=== PATIENT | female | born 1995 ===

== ENCOUNTER 2019-01-18 10:09 | Emergency (ER) | payer OTHER, MEDICAID, SELFPAY ==
[2019-01-18 10:18] VITALS: BMI 30.2
--- NOTE | 2019-01-18 10:21 | PC.NURSE ---
pt here for preg test and seeking to know how far along she is. pt took preg test last night at home that was positive.
--- NOTE | 2019-01-18 10:23 | DI.US.S_ITS ---
PROCEDURE: US OB <= 14 WEEKS FETUS INDICATIONS: DATES OUTSIDE/PRIOR DATING DATA: Last menstrual period (LMP): 11/03/18. LMP-based estimated date of delivery (THERESA): 08/10/19. First dating scan (date and location): 01/19/19. Estimated date of delivery (THERESA) from first dating scan: 08/08/19. TECHNIQUE: Real-time scanning was performed of the fetus and maternal pelvic organs, with image documentation. Endovaginal scanning was also performed to better visualize the fetus and maternal ovaries. COMPARISON: None. FINDINGS: Embryo: A single live intrauterine is identified with heart motion detected at 173 beats per minute. A developing embryo is well visualized with a crown-rump length measuring 4.3 cm, which correlates with an estimated gestational age of the left weeks 1 day. No subchorionic hemorrhage is appreciated. The sac is not definitely seen. Measurement variability in dating: +/- 4 weeks by LMP, +/- 7 days by mean sac diameter (use before 6 weeks gestation if crown-rump length not able to be measured), +/- 5 days by crown-rump length (up to 8 weeks 6 days gestation), +/- 7 days by crown-rump length (up to 13 weeks 6 days gestation). Maternal organs: Ovaries are not seen. Limited images through the kidneys demonstrate no hydronephrosis. IMPRESSION: 1. Single intrauterine at 11 weeks 1 day (sonographic THERESA 08/08/19) is concordant with provided LMP date. 2. No evidence of subchorionic hemorrhage. Dictated by: Jesse Marques M.D. on 01/18/2019 at 10:17 Approved by: Jesse Maqrues M.D. on 01/18/2019 at 10:42
[2019-01-18 11:45] VITALS: BP 111/61; PULSE 84; RESP 16; TEMP 36.8; O2SAT 100
--- NOTE | 2019-01-18 12:16 | ED.PREGNANCY ---
HPI - <GRACE Trejo - Last Filed: 01/18/19 21:55> General Chief complaint: OB/Uterine Contractions Stated complaint: TEST Time Seen by Provider: 01/18/19 12:14 Source: patient Mode of arrival: ambulatory Limitations: no limitations History of Present Illness HPI Narrative: 23-year-old healthy female that is a nonsmoker here for concern about being . She states that her last menstrual. Was on the 03 of November. She has had a home test that was positive. She states that she has had some back pain and feels like she is urinating more often. She denies any dysuria. No vaginal bleeding. No vaginal discharge. No abdominal cramping. She has not established OB care as of yet. Current makes her 2 para 1. She denies any other concerns or complaints at this timeframe. Date of Last Menstrual Period: 11/03/18 Patient : Yes Expected Date of Delivery: 08/10/19 Related Data Previous Rx's Medication Instructions Recorded prenat.vits,ashia,dup-qkre-vajxm 1 tab PO DAILY #30 tab 01/18/19 Allergies Allergy/AdvReac Type Severity Reaction Status Date / Time No Known Drug Allergies Allergy Verified 01/18/19 10:18 Review of Systems <GRACE Trejo - Last Filed: 01/18/19 21:55> Review of Systems Concerned about being positive home test. Constitutional Denies chills, Denies fever(s), Denies lethargy and Denies weakness Eyes Denies change in vision, Denies eye discharge, Denies irritation and Denies loss of vision ENT Ears, Nose, Mouth, and Throat: Denies change in voice, Denies neck pain and Denies sore throat Cardiovascular Denies chest pain, Denies irregular heart rhythm, Denies lightheadedness, Denies palpitations, Denies dyspnea, Denies dyspnea on exertion and Denies orthopnea Respiratory Denies cough, Denies dyspnea, Denies dyspnea on exertion and Denies wheezing Gastrointestinal Gastrointestinal: Denies abdominal pain, Denies change in bowel habits, Denies diarrhea, Denies nausea and Denies vomiting Genitourinary Denies hematuria, Denies flank pain, Denies urinary incontinence and Denies urinary urgency Musculoskeletal Denies neck pain Integumentary/Breasts Denies pruritus, Denies erythema, Denies rash and Denies wounds Neurologic Denies confusion, Denies loss of vision and Denies weakness Psychiatric Denies anxiety, Denies confusion, Denies depression, Denies homicidal ideation and Denies suicidal ideation Endocrine Denies palpitations Hematologic/Lymphatic Denies easy bruising Allergic/Immunologic Denies wheezing PMFSH - <Tavo JarrellGRACE samson - Last Filed: 01/18/19 21:55> Past Medical History Medical history: Reports no medical history Surgical history: Reports no surgical history Date of Last Menstrual Period: 11/03/18 Patient : Yes Expected Date of Delivery: 08/10/19 Exam <Tavo JarrellGRACE samson - Last Filed: 01/18/19 21:55> Initial Vital Signs Initial Vital Signs: Vital Signs Temperature 98.2 F 01/18/19 11:45 Pulse Rate 84 01/18/19 11:45 Respiratory Rate 16 01/18/19 11:45 Blood Pressure 111/61 01/18/19 11:45 Pulse Oximetry 100 01/18/19 11:45 Const General: cooperative and well developed Nutritional Appearance: well nourished Orientation: alert, awake, oriented x3 and not confused HENMT Mouth: oral mucosae normal and moist mucous membranes Eyes Conjunctivae: conjunctivae normal Sclera: sclerae normal Pupils: PERRL EOM: EOM intact bilaterally Resp Effort & Inspection: normal respiratory effort, able to speak in complete sentences, no respiratory distress and no use of accessory muscles Auscultation: clear to auscultation bilaterally, no rales, no rhonchi and no wheezes Cardio Rate: regular rate Rhythm: regular rhythm Heart Sounds: no click, no gallops, no murmurs and no rubs GI Inspection: non-distended Palpation: soft, no hepatosplenomegaly, No guarding, No pulsatile mass and No tender Auscultation: normal bowel sounds General: No CVA tenderness Skin General: no rashes or lesions noted, No jaundice and No petechiae Neuro General: alert, oriented x3, gait normal and no focal motor deficits Speech: speech normal <Eve Pemberton DO - Last Filed: 01/19/19 15:59> Initial Vital Signs Initial Vital Signs: Vital Signs Temperature 98.2 F 01/18/19 11:45 Pulse Rate 84 01/18/19 11:45 Respiratory Rate 16 01/18/19 11:45 Blood Pressure 111/61 01/18/19 11:45 Pulse Oximetry 100 01/18/19 11:45 Course <GRACE Trejo - Last Filed: 01/18/19 21:55> Orders Ordered: ED Orders 01/18/19 10:23 US OB <= 14 weeks fetus Stat Vital Signs - 8 hr 01/18/19 11:45 Temperature 98.2 F Pulse Rate 84 Respiratory Rate 16 Blood Pressure [Left Arm] 111/61 Pulse Oximetry 100 <Eve Pemberton DO - Last Filed: 01/19/19 15:59> Orders Ordered: ED Orders 01/18/19 10:23 US OB <= 14 weeks fetus Stat Vital Signs - 8 hr 01/18/19 11:45 Temperature 98.2 F Pulse Rate 84 Respiratory Rate 16 Blood Pressure [Left Arm] 111/61 Pulse Oximetry 100 MDM - OB/Uterine Contractions <GRACE Trejo - Last Filed: 01/18/19 21:55> Lab Data Point of Care Testing Test Results Positive Urine Dip Bedside Urine Glucose Negative Bedside Urine Bilirubin - Negative Bedside Urine Ketone - Negative Urine Specific [place] 1.020 Bedside Urine Occult Blood - Negative Bedside Urine pH 6.5 Bedside Urine Protein - Negative Bedside Urine Urobilinogen - Negative Bedside Urine Nitrite - Negative Bedside Urine Leukocytes - Negative Esterase Imaging Data Ob ultrasound: Radiologist's impression: [place] [address] Ultrasound Report Signed Patient: Wilma Bethea [facility]#: [id number] : 1995Acct:[id number] Age/Sex: 23 / FDate of Service: 01/18/19 Loc: ED Accession Number: [id number] Procedure: US OB <= 14 weeks fetus Ordering Provider: Eve Pemberton D.O. PROCEDURE: US OB <= 14 WEEKS FETUS INDICATIONS: DATES OUTSIDE/PRIOR DATING DATA: Last menstrual period (LMP): 11/03/18. LMP-based estimated date of delivery (THERESA): 08/10/19. First dating scan (date and location): 01/19/19. Estimated date of delivery (THERESA) from first dating scan: 08/08/19. TECHNIQUE: Real-time scanning was performed of the fetus and maternal pelvic organs, with image documentation. Endovaginal scanning was also performed to better visualize the fetus and maternal ovaries. COMPARISON: None. FINDINGS: Embryo: A single live intrauterine is identified with heart motion detected at 173 beats per minute. A developing embryo is well visualized with a crown-rump length measuring 4.3 cm, which correlates with an estimated gestational age of the left weeks 1 day. No subchorionic hemorrhage is appreciated. The sac is not definitely seen. Measurement variability in dating: +/- 4 weeks by LMP, +/- 7 days by mean sac diameter (use before 6 weeks gestation if crown-rump length not able to be measured), +/- 5 days by crown-rump length (up to 8 weeks 6 days gestation), +/- 7 days by crown-rump length (up to 13 weeks 6 days gestation). Maternal organs: Ovaries are not seen. Limited images through the kidneys demonstrate no hydronephrosis. IMPRESSION: 1. Single intrauterine at 11 weeks 1 day (sonographic THERESA 08/08/19) is concordant with provided LMP date. 2. No evidence of subchorionic hemorrhage. Dictated by: Jesse Marques M.D. on 01/18/2019 at 10:17 Approved by: Jesse Marques M.D. on 01/18/2019 at 10:42 MDM Narrative Medical decision making narrative: Ob ultrasound was obtained and shows a intrauterine with viable heart rate. No signs of hemorrhage. Patient is 2 para 0. First day of last menstrual period was November 03. Using will this also equate to 11 weeks gestational age with a estimated delivery date of 10 August. 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 For any worsening symptoms return to the emergency room. Urinalysis was negative for urinary tract infection. She has no active bleeding no vaginal discharge. No abdominal cramping. <Eve Pemberton, - Last Filed: 01/19/19 15:59> Lab Data Point of Care Testing Test Results Positive Urine Dip Bedside Urine Glucose Negative Bedside Urine Bilirubin - Negative Bedside Urine Ketone - Negative Urine Specific [place] 1.020 Bedside Urine Occult Blood - Negative Bedside Urine pH 6.5 Bedside Urine Protein - Negative Bedside Urine Urobilinogen - Negative Bedside Urine Nitrite - Negative Bedside Urine Leukocytes - Negative Esterase Discharge Plan Departure Patient Disposition: Home Clinical Impression: Qualifiers: Weeks of gestation: 11 weeks Qualified Code(s): Z3A.11 - 11 weeks gestation of Discharge Date/Time: 01/18/19 12:54 Interventions: ED Discharge Assessment Last Done: 01/18/19 12:53 Instructions: DI for -- Discomforts and Remedies Activity Restrictions/Additional Instructions: Ultrasound was obtained and shows an intrauterine of approximately 11 weeks of age. A appears to be healthy and doing well. Establish OB care you may call the number number provided to call them call them in the next couple days to schedule follow-up appointment. For any worsening symptoms return to the emergency room. vitamins are prescribed Prescriptions: Ousmane lima.vits,ashia,xmu-fxmf-ngeog tablet 1 tab PO DAILY Qty: 30 RF: 0 Referrals: Jacques Miranda MD [Physician] - <Eve Pemberton DO - Last Filed: 01/19/19 15:59> Cosign ED Attending Cosignature Attestation: I was immediately available in the department for consultation. Documentation has been reviewed. I agree with assessment and plan.
--- NOTE | 2019-01-18 12:28 | ED_ITS ---
HPI - <GRACE Trejo - Last Filed: 01/18/19 21:55> General Chief complaint: OB/Uterine Contractions Stated complaint: TEST Time Seen by Provider: 01/18/19 12:14 Source: patient Mode of arrival: ambulatory Limitations: no limitations History of Present Illness HPI Narrative: 23-year-old healthy female that is a nonsmoker here for concern about being . She states that her last menstrual. Was on the 03 of November. She has had a home test that was positive. She states that she has had some back pain and feels like she is urinating more often. She denies any dysuria. No vaginal bleeding. No vaginal discharge. No abdominal cramping. She has not established OB care as of yet. Current makes her 2 para 1. She denies any other concerns or complaints at this timeframe. Date of Last Menstrual Period: 11/03/18 Patient : Yes Expected Date of Delivery: 08/10/19 Related Data Previous Rx's Medication Instructions Recorded prenat.vits,ashia,wyn-inod-rfkup 1 tab PO DAILY #30 tab 01/18/19 Allergies Allergy/AdvReac Type Severity Reaction Status Date / Time No Known Drug Allergies Allergy Verified 01/18/19 10:18 Review of Systems <GRACE Trejo - Last Filed: 01/18/19 21:55> Review of Systems Concerned about being positive home test. Constitutional Denies chills, Denies fever(s), Denies lethargy and Denies weakness Eyes Denies change in vision, Denies eye discharge, Denies irritation and Denies loss of vision ENT Ears, Nose, Mouth, and Throat: Denies change in voice, Denies neck pain and Denies sore throat Cardiovascular Denies chest pain, Denies irregular heart rhythm, Denies lightheadedness, Denies palpitations, Denies dyspnea, Denies dyspnea on exertion and Denies orthopnea Respiratory Denies cough, Denies dyspnea, Denies dyspnea on exertion and Denies wheezing Gastrointestinal Gastrointestinal: Denies abdominal pain, Denies change in bowel habits, Denies diarrhea, Denies nausea and Denies vomiting Genitourinary Denies hematuria, Denies flank pain, Denies urinary incontinence and Denies urinary urgency Musculoskeletal Denies neck pain Integumentary/Breasts Denies pruritus, Denies erythema, Denies rash and Denies wounds Neurologic Denies confusion, Denies loss of vision and Denies weakness Psychiatric Denies anxiety, Denies confusion, Denies depression, Denies homicidal ideation and Denies suicidal ideation Endocrine Denies palpitations Hematologic/Lymphatic Denies easy bruising Allergic/Immunologic Denies wheezing PMFSH - <Tavo JarrellGRACE samson - Last Filed: 01/18/19 21:55> Past Medical History Medical history: Reports no medical history Surgical history: Reports no surgical history Date of Last Menstrual Period: 11/03/18 Patient : Yes Expected Date of Delivery: 08/10/19 Exam <Tavo JarrellGRACE samson - Last Filed: 01/18/19 21:55> Initial Vital Signs Initial Vital Signs: Vital Signs Temperature 98.2 F 01/18/19 11:45 Pulse Rate 84 01/18/19 11:45 Respiratory Rate 16 01/18/19 11:45 Blood Pressure 111/61 01/18/19 11:45 Pulse Oximetry 100 01/18/19 11:45 Const General: cooperative and well developed Nutritional Appearance: well nourished Orientation: alert, awake, oriented x3 and not confused HENMT Mouth: oral mucosae normal and moist mucous membranes Eyes Conjunctivae: conjunctivae normal Sclera: sclerae normal Pupils: PERRL EOM: EOM intact bilaterally Resp Effort & Inspection: normal respiratory effort, able to speak in complete sentences, no respiratory distress and no use of accessory muscles Auscultation: clear to auscultation bilaterally, no rales, no rhonchi and no wheezes Cardio Rate: regular rate Rhythm: regular rhythm Heart Sounds: no click, no gallops, no murmurs and no rubs GI Inspection: non-distended Palpation: soft, no hepatosplenomegaly, No guarding, No pulsatile mass and No tender Auscultation: normal bowel sounds General: No CVA tenderness Skin General: no rashes or lesions noted, No jaundice and No petechiae Neuro General: alert, oriented x3, gait normal and no focal motor deficits Speech: speech normal <Eve Pemberton DO - Last Filed: 01/19/19 15:59> Initial Vital Signs Initial Vital Signs: Vital Signs Temperature 98.2 F 01/18/19 11:45 Pulse Rate 84 01/18/19 11:45 Respiratory Rate 16 01/18/19 11:45 Blood Pressure 111/61 01/18/19 11:45 Pulse Oximetry 100 01/18/19 11:45 Course <GRACE Trejo - Last Filed: 01/18/19 21:55> Orders Ordered: ED Orders 01/18/19 10:23 US OB <= 14 weeks fetus Stat Vital Signs - 8 hr 01/18/19 11:45 Temperature 98.2 F Pulse Rate 84 Respiratory Rate 16 Blood Pressure [Left Arm] 111/61 Pulse Oximetry 100 <Eve Pemberton DO - Last Filed: 01/19/19 15:59> Orders Ordered: ED Orders 01/18/19 10:23 US OB <= 14 weeks fetus Stat Vital Signs - 8 hr 01/18/19 11:45 Temperature 98.2 F Pulse Rate 84 Respiratory Rate 16 Blood Pressure [Left Arm] 111/61 Pulse Oximetry 100 MDM - OB/Uterine Contractions <GRACE Trejo - Last Filed: 01/18/19 21:55> Lab Data Point of Care Testing Test Results Positive Urine Dip Bedside Urine Glucose Negative Bedside Urine Bilirubin - Negative Bedside Urine Ketone - Negative Urine Specific [place] 1.020 Bedside Urine Occult Blood - Negative Bedside Urine pH 6.5 Bedside Urine Protein - Negative Bedside Urine Urobilinogen - Negative Bedside Urine Nitrite - Negative Bedside Urine Leukocytes - Negative Esterase Imaging Data Ob ultrasound: Radiologist's impression: [place] [address] Ultrasound Report Signed Patient: Wilma Bethea [facility]#: [id number] : 1995Acct:[id number] Age/Sex: 23 / FDate of Service: 01/18/19 Loc: ED Accession Number: [id number] Procedure: US OB <= 14 weeks fetus Ordering Provider: Eve Pemberton D.O. PROCEDURE: US OB <= 14 WEEKS FETUS INDICATIONS: DATES OUTSIDE/PRIOR DATING DATA: Last menstrual period (LMP): 11/03/18. LMP-based estimated date of delivery (THERESA): 08/10/19. First dating scan (date and location): 01/19/19. Estimated date of delivery (THERESA) from first dating scan: 08/08/19. TECHNIQUE: Real-time scanning was performed of the fetus and maternal pelvic organs, with image documentation. Endovaginal scanning was also performed to better visualize the fetus and maternal ovaries. COMPARISON: None. FINDINGS: Embryo: A single live intrauterine is identified with heart motion detected at 173 beats per minute. A developing embryo is well visualized with a crown-rump length measuring 4.3 cm, which correlates with an estimated gestational age of the left weeks 1 day. No subchorionic hemorrhage is appreciated. The sac is not definitely seen. Measurement variability in dating: +/- 4 weeks by LMP, +/- 7 days by mean sac diameter (use before 6 weeks gestation if crown-rump length not able to be measured), +/- 5 days by crown-rump length (up to 8 weeks 6 days gestation), +/- 7 days by crown-rump length (up to 13 weeks 6 days gestation). Maternal organs: Ovaries are not seen. Limited images through the kidneys demonstrate no hydronephrosis. IMPRESSION: 1. Single intrauterine at 11 weeks 1 day (sonographic THERESA 08/08/19) is concordant with provided LMP date. 2. No evidence of subchorionic hemorrhage. Dictated by: Jesse Marques M.D. on 01/18/2019 at 10:17 Approved by: Jesse Marques M.D. on 01/18/2019 at 10:42 MDM Narrative Medical decision making narrative: Ob ultrasound was obtained and shows a intrauterine with viable heart rate. No signs of hemorrhage. Patient is 2 para 0. First day of last menstrual period was November 03. Using will this also equate to 11 weeks gestational age with a estimated delivery date of 10 August. 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 For any worsening symptoms return to the emergency room. Urinalysis was negative for urinary tract infection. She has no active bleeding no vaginal discharge. No abdominal cramping. <Eve Pemberton, - Last Filed: 01/19/19 15:59> Lab Data Point of Care Testing Test Results Positive Urine Dip Bedside Urine Glucose Negative Bedside Urine Bilirubin - Negative Bedside Urine Ketone - Negative Urine Specific [place] 1.020 Bedside Urine Occult Blood - Negative Bedside Urine pH 6.5 Bedside Urine Protein - Negative Bedside Urine Urobilinogen - Negative Bedside Urine Nitrite - Negative Bedside Urine Leukocytes - Negative Esterase Discharge Plan Departure Patient Disposition: Home Clinical Impression: Qualifiers: Weeks of gestation: 11 weeks Qualified Code(s): Z3A.11 - 11 weeks gestation of Discharge Date/Time: 01/18/19 12:54 Interventions: ED Discharge Assessment Last Done: 01/18/19 12:53 Instructions: DI for -- Discomforts and Remedies Activity Restrictions/Additional Instructions: Ultrasound was obtained and shows an intrauterine of approximately 11 weeks of age. A appears to be healthy and doing well. Establish OB care you may call the number number provided to call them call them in the next couple days to schedule follow-up appointment. For any worsening symptoms return to the emergency room. vitamins are prescribed Prescriptions: Ousmane lima.vits,ashia,iya-flwg-ekpvn tablet 1 tab PO DAILY Qty: 30 RF: 0 Referrals: Jacques Miranda MD [Physician] - <Eve Pemberton DO - Last Filed: 01/19/19 15:59> Cosign ED Attending Cosignature Attestation: I was immediately available in the department for consultation. Documentation has been reviewed. I agree with assessment and plan.
== END 2019-01-18 12:54 | disposition home or self-care (01) ==
PROVIDERS: Emergency Provider Nurse Practitioner Family
DX: Z32.01 Encounter for pregnancy test, result positive (principal); Z3A.11 11 weeks gestation of pregnancy
CPT/HCPCS: 76801; 76817; 81003; 81025; 99282; 99283

== ENCOUNTER 2019-04-06 08:17 | Emergency (ER) | payer OTHER, MEDICAID, SELFPAY ==
[2019-04-06 08:20] VITALS: BP 126/72; PULSE 83; RESP 18; TEMP 36.6; O2SAT 99; BMI 32.1
--- NOTE | 2019-04-06 09:02 | ED.FEMALEGU ---
HPI - Female Genitourinary General Chief complaint: Urogenital-Female Stated complaint: poss kidney stones Time Seen by Provider: 04/06/19 08:23 Source: patient Mode of arrival: ambulatory Limitations: no limitations History of Present Illness HPI Narrative: This is a 23-year-old female comes in with complaint of flank pain. Patient states she has had symptoms on and off for a while. Patient has not had any fevers, she has had some nausea but no consistent vomiting. She states pain is sort of right flank sort of lower down on her right side. It does can wrap around to the front. She has had normal bowel movements, no black or bloody stools. She has not had any dysuria but did notice some darkish discoloration in the urine occasionally. She is it looks sort of like clumps of blood. Patient also has noted that she had a about a month ago. She states immediately afterward for several weeks she had pain on the right side kind of in the area of the urethra. She states has resolved. She has continued to have a small amount of vaginal bleeding that is brownish in color but not consistently. She does continue to have some frequency but no urgency. She has had a before, she denies any other medical issues. Denies any allergies to medications. She smokes tobacco. Related Data Previous Rx's Medication Instructions Recorded prenat.vits,ashia,vgl-notz-tmyer 1 tab PO DAILY #30 tab 01/18/19 Allergies Allergy/AdvReac Type Severity Reaction Status Date / Time No Known Drug Allergies Allergy Verified 01/18/19 10:18 Review of Systems Review of Systems ROS Unobtainable: All systems reviewed & are unremarkable except as noted in HPI and below Constitutional Denies chills, Denies fever(s), Denies lethargy and Denies weakness Cardiovascular Denies chest pain and Denies dyspnea Respiratory Denies chest congestion and Denies dyspnea Gastrointestinal Gastrointestinal: Reports abdominal pain, Denies melena, Denies hematochezia, Denies change in bowel habits, Denies diarrhea, Reports nausea and Reports vomiting Genitourinary Reports as per HPI, Reports abnormal vaginal bleeding, Denies hematuria, Reports urinary frequency, Denies dysuria, Reports flank pain (Right), Denies urinary incontinence, Denies urinary hesitancy, Denies urinary urgency, Reports vaginal discharge, Denies vaginal odor and Denies vaginal pruritus Musculoskeletal Denies back pain Neurologic Denies weakness [facility] Surgical History (Updated 04/06/19 @ 09:07 by Adrianne Steinberg DO) S/P (Chronic) Social History (Updated 04/06/19 @ 09:07 by Adrianne Steinberg DO) Smoking Status: Current every day smoker Smokeless tobacco user: other Social History (Updated 04/06/19 @ 09:07 by Adrianne Steinberg DO) Smoking Status: Current every day smoker Smokeless tobacco user: other Exam Narrative Exam Narrative: GENERAL: Alert and oriented x three, well-nourished, well-appearing female in no acute distress. HEENT: Head normocephalic, atraumatic, EOMI, pupils reactive, face symmetric, moist mucous membranes NECK: Supple, full range of motion CARDIOVASCULAR: Regular rate and rhythm without murmurs, rubs or gallops. RESPIRATORY: Breath sounds equal bilaterally, no wheezes rales or rhonchi. ABDOMEN: Soft, mild right-sided abdominal discomfort. Normoactive bowel sounds all 4 quadrants. No guarding or rebound, rigidity, no mass : No CVA tenderness bilaterally. Female: externa vaginal exam is normal, patient has some brownish what appears old blood in the vaginal canal, no bright red blood is appreciated, no discharge, no cervical motion tenderness, normal speculum exam, no adnexal tenderness/mass. Bimanual exam is normal, no enlarged or tender uterus. Non-gravid. Strings were not noted but IUD is noted in the ultrasound. EXTREMITIES: Normal range of motion, no clubbing or edema. Neurovascularly intact NEUROLOGICAL: Cranial nerves II through XII grossly intact. Moving all extremities SKIN: Warm, dry, no petechiae, no rashes or lesions. Initial Vital Signs Initial Vital Signs: Vital Signs Temperature 97.8 F 04/06/19 08:20 Pulse Rate 83 04/06/19 08:20 Respiratory Rate 18 04/06/19 08:20 Blood Pressure 126/72 04/06/19 08:20 Pulse Oximetry 99 04/06/19 08:20 Course Orders Ordered: ED Orders 04/06/19 08:50 Urine Culture Stat Urine Microscopic Stat 04/06/19 09:02 US abdomen limited Stat US pelvic complete Stat 04/06/19 09:45 Complete Blood Count AUTO DIFF Stat Comprehensive Metabolic Panel Stat Lipase Stat Vital Signs - 8 hr 04/06/19 11:14 Pulse Rate 50 L Respiratory Rate 18 Blood Pressure [Left Arm] 101/51 L Pulse Oximetry 98 MDM - Female Genitourinary Lab Data Attestation: I reviewed the patient's lab results. Result diagrams: 04/06/19 09:45 04/06/19 09:45 Lab Results 04/06/19 04/06/19 04/06/19 Range/Units 08:50 09:45 09:45 WBC 7.3 (4.5-11.0) X10^3/uL RBC 4.75 (4.0-5.2) X10^6/uL Hgb 14.2 (12.0-16.0) g/dL Hct 41.6 (36-46) % MCV 87.6 (80-100) fL MCH 29.8 (26-34) PG MCHC 34.0 (30-36) % RDW 13.1 (11.6-14.8) % Plt Count 252 (150-400) X10^3/uL Neut % (Auto) 51.8 (50-75) % Lymph % (Auto) 36.3 (25-40) % [place] % (Auto) 10.0 (3-14) % Eos % (Auto) 1.2 L (2-4) % Baso % (Auto) 0.7 (0-2) % Neut # (Auto) 3800 (7532-2206) /uL Lymph # (Auto) 2700 (5260-1226) /uL [place] # (Auto) 700 (0-900) /uL Eos # (Auto) 100 (0-450) /uL Baso # (Auto) 100 (0-100) /uL Sodium 141 (137-145) mmol/L Potassium 4.3 (3.4-5.1) mmol/L Chloride 104 (98-107) mmol/L Carbon Dioxide 28 (22-32) mmol/L BUN 10 (7-17) mg/dL Creatinine 0.60 (0.52-1.04) mg/dL Estimated GFR > 60.0 (>60) mL/min BUN/Creatinine Ratio 16.7 (6-22) Glucose 98 (70-100) mg/dL Calcium 9.7 (8.4-10.2) mg/dL Total Bilirubin 0.5 (0.2-1.3) mg/dL AST 23 (14-36) IU/L ALT 23 (9-52) IU/L Alkaline Phosphatase 72 (38-126) U/L Total Protein 8.5 H (6.3-8.2) g/dL Albumin 4.8 (3.5-5.0) g/dL Globulin 3.7 (1.7-4.1) g/dL Albumin/Globulin Ratio 1.3 (1.0-2.8) Lipase 73 (23-300) U/L Urine RBC 10-30/hpf H (0-5/HPF) Urine WBC 5-10/hpf H (0-5/HPF) Urine Bacteria None seen (None) Urine Mucus 2+ H (Negative) Ur Culture Indicated? Specimen cultured Point of Care Testing Test Results Negative Urine Dip Bedside Urine Glucose Negative Bedside Urine Bilirubin + 1 Bedside Urine Ketone + 15 Urine Specific [place] 1.030 Bedside Urine Occult Blood ++ Bedside Urine pH 5.5 Bedside Urine Protein +/- 15 Bedside Urine Urobilinogen +/- 1mg Bedside Urine Nitrite - Negative Bedside Urine Leukocytes +/- 15 Esterase Imaging Data US - abdomen: Radiologist's impression: [address] [address] Ultrasound Report Signed Patient: Wilma Bethea [facility]#: [id number] : 1995Acct:[id number] Age/Sex: 23 / FDate of Service: 04/06/19 Loc: ED Accession Number: [id number] Procedure: US abdomen limited Ordering Provider: Adrianne Steinberg D.O. PROCEDURE: US ABDOMEN LIMITED INDICATIONS: RIGHT UPPER QUADRANT PAIN TECHNIQUE: Real-time focused scanning was performed of the abdomen, with image documentation. COMPARISON: None. FINDINGS: The pancreas is not seen, secondary to bowel gas. The liver demonstrates an unremarkable appearance. No findings of gallstones or sludge are seen. The gallbladder wall is not thickened, measuring 3 mm or less. No specific pericholecystic fluid is seen. The sonographic Rueda sign is negative. There is no biliary dilatation, the common bile duct measures 4 mm. Limited evaluation of the right kidney is unremarkable, without hydronephrosis. No appendix (either normal or abnormal) is identified on this study. IMPRESSION: The gallbladder demonstrates a normal sonographic appearance. No biliary dilatation is seen. Dictated by: Roderick Gore M.D. on 04/06/2019 at 8:40 Approved by: Roderick Gore M.D. on 04/06/2019 at 8:41 Pelvic ultrasound: Radiologist's impression: [address] [address] Ultrasound Report Signed Patient: Wilma Bethea [facility]#: [id number] : 1995Acct:[id number] Age/Sex: 23 / FDate of Service: 04/06/19 Loc: ED Accession Number: [id number] Procedure: US pelvic complete Ordering Provider: Adrianne Steinberg D.O. PROCEDURE: US PELVIC COMPLETE INDICATIONS: RIGHT FLANK PAIN TECHNIQUE: Real-time scanning was performed of the pelvic organs, with image documentation. Additional endovaginal scanning was necessary due to incomplete visualization of the adnexal and endometrial structures by transabdominal scanning. COMPARISON: [facility], , US ABDOMEN LIMITED, 04/06/2019, 9:13. FINDINGS: Transabdominal scanning: Limited scanning through the kidneys shows no hydronephrosis. No pathologic free abdominal or pelvic fluid. No appendix (either normal or abnormal) is identified on this study. Endovaginal scanning: Uterus: Uterus is normal in size at 8.4 x 4.2 x 4.9 cm. The endometrium measures 5 mm in combined thickness. An IUD is seen at its expected location. Ovaries: The right ovary measures 2.9 x 1.8 x 1.7 cm. The left ovary measures 3.6 x 3 x 2.5 cm. The ovaries have a normal sonographic appearance, with a dominant follicle seen within the left ovary that measures up to 1.6 cm. No adnexal masses are seen. IMPRESSION: Unremarkable pelvic ultrasound, without a cause of right flank pain identified. No appendix can be seen by ultrasound, either normal or abnormal. Dictated by: Roderick Gore M.D. on 04/06/2019 at 9:25 Approved by: Roderick Gore M.D. on 04/06/2019 at 9:27 MDM Narrative Medical decision making narrative: Patient's lab work is normal, ultrasound shows an IUD in place, there is no major changes noted. Patent appendix was not noticed on either exam but otherwise abdominal findings were normal. Patient's lab work does not show any major abnormalities, urine did show some leukocyte esterase, patient is preferring to wait for urine culture. We discussed that bleeding is likely secondary to her IUD placement. Her pelvic exam otherwise is normal. No specific cause found for her abdominal/pelvic discomfort. Patient is comfortable with watchful waiting, urine culture is pending, urine did show leukocyte esterase but no nitrates. Discharge Plan Departure Patient Disposition: Home Clinical Impression: Flank pain Discharge Date/Time: 04/06/19 11:15 Interventions: ED Discharge Assessment Last Done: 04/06/19 11:15 Instructions: DI for Flank Pain Activity Restrictions/Additional Instructions: Follow-up with primary care in the next 5-7 days if symptoms are not resolving. You may take ibuprofen up to 800 mg every 8 hours as needed for pain and or Tylenol up to a 1000 mg every 8 hours as needed. Your urine was sent for urine culture, if it is positive you should expect a phone call in 48 hours. If negative we will not call. He should expect a mild increase in vaginal bleeding after your ultrasound today. Return to the emergency department for fevers greater 100.4 F, worsening abdominal or flank pain, lightheadedness, passing out, new or persistent vomiting, diarrhea, constipation, increasing vaginal bleeding or other new or concerning symptoms. Prescriptions: No Action prenat.vits,ashia,qsa-erys-hobfb tablet 1 tab PO DAILY Qty: 30 RF: 0
--- NOTE | 2019-04-06 09:08 | ED_ITS ---
HPI - Female Genitourinary General Chief complaint: Urogenital-Female Stated complaint: poss kidney stones Time Seen by Provider: 04/06/19 08:23 Source: patient Mode of arrival: ambulatory Limitations: no limitations History of Present Illness HPI Narrative: This is a 23-year-old female comes in with complaint of flank pain. Patient states she has had symptoms on and off for a while. Patient has not had any fevers, she has had some nausea but no consistent vomiting. She states pain is sort of right flank sort of lower down on her right side. It does can wrap around to the front. She has had normal bowel movements, no black or bloody stools. She has not had any dysuria but did notice some darkish discoloration in the urine occasionally. She is it looks sort of like clumps of blood. Patient also has noted that she had a about a month ago. She states immediately afterward for several weeks she had pain on the right side kind of in the area of the urethra. She states has resolved. She has continued to have a small amount of vaginal bleeding that is brownish in color but not consistently. She does continue to have some frequency but no urgency. She has had a before, she denies any other medical issues. Denies any allergies to medications. She smokes tobacco. Related Data Previous Rx's Medication Instructions Recorded prenat.vits,ashia,yfp-xowx-obwkg 1 tab PO DAILY #30 tab 01/18/19 Allergies Allergy/AdvReac Type Severity Reaction Status Date / Time No Known Drug Allergies Allergy Verified 01/18/19 10:18 Review of Systems Review of Systems ROS Unobtainable: All systems reviewed & are unremarkable except as noted in HPI and below Constitutional Denies chills, Denies fever(s), Denies lethargy and Denies weakness Cardiovascular Denies chest pain and Denies dyspnea Respiratory Denies chest congestion and Denies dyspnea Gastrointestinal Gastrointestinal: Reports abdominal pain, Denies melena, Denies hematochezia, Denies change in bowel habits, Denies diarrhea, Reports nausea and Reports vomiting Genitourinary Reports as per HPI, Reports abnormal vaginal bleeding, Denies hematuria, Reports urinary frequency, Denies dysuria, Reports flank pain (Right), Denies urinary incontinence, Denies urinary hesitancy, Denies urinary urgency, Reports vaginal discharge, Denies vaginal odor and Denies vaginal pruritus Musculoskeletal Denies back pain Neurologic Denies weakness [facility] Surgical History (Updated 04/06/19 @ 09:07 by Adrianne Steinberg DO) S/P (Chronic) Social History (Updated 04/06/19 @ 09:07 by Adrianne Steinberg DO) Smoking Status: Current every day smoker Smokeless tobacco user: other Social History (Updated 04/06/19 @ 09:07 by Adrianne Steinberg DO) Smoking Status: Current every day smoker Smokeless tobacco user: other Exam Narrative Exam Narrative: GENERAL: Alert and oriented x three, well-nourished, well- appearing female in no acute distress. HEENT: Head normocephalic, atraumatic, EOMI, pupils reactive, face symmetric, moist mucous membranes NECK: Supple, full range of motion CARDIOVASCULAR: Regular rate and rhythm without murmurs, rubs or gallops. RESPIRATORY: Breath sounds equal bilaterally, no wheezes rales or rhonchi. ABDOMEN: Soft, mild right-sided abdominal discomfort. Normoactive bowel sounds all 4 quadrants. No guarding or rebound, rigidity, no mass : No CVA tenderness bilaterally. Female: externa vaginal exam is normal, patient has some brownish what appears old blood in the vaginal canal, no bright red blood is appreciated, no discharge, no cervical motion tenderness, normal speculum exam, no adnexal tenderness/mass. Bimanual exam is normal, no enlarged or tender uterus. Non-gravid. Strings were not noted but IUD is noted in the ultrasound. EXTREMITIES: Normal range of motion, no clubbing or edema. Neurovascularly intact NEUROLOGICAL: Cranial nerves II through XII grossly intact. Moving all extremities SKIN: Warm, dry, no petechiae, no rashes or lesions. Initial Vital Signs Initial Vital Signs: Vital Signs Temperature 97.8 F 04/06/19 08:20 Pulse Rate 83 04/06/19 08:20 Respiratory Rate 18 04/06/19 08:20 Blood Pressure 126/72 04/06/19 08:20 Pulse Oximetry 99 04/06/19 08:20 Course Orders Ordered: ED Orders 04/06/19 08:50 Urine Culture Stat Urine Microscopic Stat 04/06/19 09:02 US abdomen limited Stat US pelvic complete Stat 04/06/19 09:45 Complete Blood Count AUTO DIFF Stat Comprehensive Metabolic Panel Stat Lipase Stat Vital Signs - 8 hr 04/06/19 11:14 Pulse Rate 50 L Respiratory Rate 18 Blood Pressure [Left Arm] 101/51 L Pulse Oximetry 98 MDM - Female Genitourinary Lab Data Attestation: I reviewed the patient's lab results. Result diagrams: 04/06/19 09:45 04/06/19 09:45 Lab Results 04/06/19 04/06/19 04/06/19 Range/Units 08:50 09:45 09:45 WBC 7.3 (4.5-11.0) X10^3/uL RBC 4.75 (4.0-5.2) X10^6/uL Hgb 14.2 (12.0-16.0) g/dL Hct 41.6 (36-46) % MCV 87.6 (80-100) fL MCH 29.8 (26-34) PG MCHC 34.0 (30-36) % RDW 13.1 (11.6-14.8) % Plt Count 252 (150-400) X10^3/uL Neut % (Auto) 51.8 (50-75) % Lymph % (Auto) 36.3 (25-40) % [place] % (Auto) 10.0 (3-14) % Eos % (Auto) 1.2 L (2-4) % Baso % (Auto) 0.7 (0-2) % Neut # (Auto) 3800 (7801-1915) /uL Lymph # (Auto) 2700 (8467-9147) /uL [place] # (Auto) 700 (0-900) /uL Eos # (Auto) 100 (0-450) /uL Baso # (Auto) 100 (0-100) /uL Sodium 141 (137-145) mmol/L Potassium 4.3 (3.4-5.1) mmol/L Chloride 104 (98-107) mmol/L Carbon Dioxide 28 (22-32) mmol/L BUN 10 (7-17) mg/dL Creatinine 0.60 (0.52-1.04) mg/dL Estimated GFR > 60.0 (>60) mL/min BUN/Creatinine Ratio 16.7 (6-22) Glucose 98 (70-100) mg/dL Calcium 9.7 (8.4-10.2) mg/dL Total Bilirubin 0.5 (0.2-1.3) mg/dL AST 23 (14-36) IU/L ALT 23 (9-52) IU/L Alkaline Phosphatase 72 (38-126) U/L Total Protein 8.5 H (6.3-8.2) g/dL Albumin 4.8 (3.5-5.0) g/dL Globulin 3.7 (1.7-4.1) g/dL Albumin/Globulin Ratio 1.3 (1.0-2.8) Lipase 73 (23-300) U/L Urine RBC 10-30/hpf H (0-5/HPF) Urine WBC 5-10/hpf H (0-5/HPF) Urine Bacteria None seen (None) Urine Mucus 2+ H (Negative) Ur Culture Indicated? Specimen cultured Point of Care Testing Test Results Negative Urine Dip Bedside Urine Glucose Negative Bedside Urine Bilirubin + 1 Bedside Urine Ketone + 15 Urine Specific [place] 1.030 Bedside Urine Occult Blood ++ Bedside Urine pH 5.5 Bedside Urine Protein +/- 15 Bedside Urine Urobilinogen +/- 1mg Bedside Urine Nitrite - Negative Bedside Urine Leukocytes +/- 15 Esterase Imaging Data US - abdomen: Radiologist's impression: [address] [address] Ultrasound Report Signed Patient: Wilma Bethea [facility]#: [id number] : 1995Acct:[id number] Age/Sex: 23 / FDate of Service: 04/06/19 Loc: ED Accession Number: [id number] Procedure: US abdomen limited Ordering Provider: Adrianne Steinberg D.O. PROCEDURE: US ABDOMEN LIMITED INDICATIONS: RIGHT UPPER QUADRANT PAIN TECHNIQUE: Real-time focused scanning was performed of the abdomen, with image documentation. COMPARISON: None. FINDINGS: The pancreas is not seen, secondary to bowel gas. The liver demonstrates an unremarkable appearance. No findings of gallstones or sludge are seen. The gallbladder wall is not thickened, measuring 3 mm or less. No specific pericholecystic fluid is seen. The sonographic Rueda sign is negative. There is no biliary dilatation, the common bile duct measures 4 mm. Limited evaluation of the right kidney is unremarkable, without hydronephrosis. No appendix (either normal or abnormal) is identified on this study. IMPRESSION: The gallbladder demonstrates a normal sonographic appearance. No biliary dilatation is seen. Dictated by: Roderick Gore M.D. on 04/06/2019 at 8:40 Approved by: Roderick Gore M.D. on 04/06/2019 at 8:41 Pelvic ultrasound: Radiologist's impression: [address] [address] Ultrasound Report Signed Patient: Wilma Bethea [facility]#: [id number] : 1995Acct:[id number] Age/Sex: 23 / FDate of Service: 04/06/19 Loc: ED Accession Number: [id number] Procedure: US pelvic complete Ordering Provider: Adrianne Steinberg D.O. PROCEDURE: US PELVIC COMPLETE INDICATIONS: RIGHT FLANK PAIN TECHNIQUE: Real-time scanning was performed of the pelvic organs, with image documentation. Additional endovaginal scanning was necessary due to incomplete visualization of the adnexal and endometrial structures by transabdominal scanning. COMPARISON: [facility], , US ABDOMEN LIMITED, 04/06/2019, 9:13. FINDINGS: Transabdominal scanning: Limited scanning through the kidneys shows no hydronephrosis. No pathologic free abdominal or pelvic fluid. No appendix (either normal or abnormal) is identified on this study. Endovaginal scanning: Uterus: Uterus is normal in size at 8.4 x 4.2 x 4.9 cm. The endometrium measures 5 mm in combined thickness. An IUD is seen at its expected location. Ovaries: The right ovary measures 2.9 x 1.8 x 1.7 cm. The left ovary measures 3.6 x 3 x 2.5 cm. The ovaries have a normal sonographic appearance, with a dominant follicle seen within the left ovary that measures up to 1.6 cm. No adnexal masses are seen. IMPRESSION: Unremarkable pelvic ultrasound, without a cause of right flank pain identified. No appendix can be seen by ultrasound, either normal or abnormal. Dictated by: Roderick Gore M.D. on 04/06/2019 at 9:25 Approved by: Roderick Gore M.D. on 04/06/2019 at 9:27 MDM Narrative Medical decision making narrative: Patient's lab work is normal, ultrasound shows an IUD in place, there is no major changes noted. Patent appendix was not noticed on either exam but otherwise abdominal findings were normal. Patient's lab work does not show any major abnormalities, urine did show some leukocyte esterase, patient is preferring to wait for urine culture. We discussed that bleeding is likely secondary to her IUD placement. Her pelvic exam otherwise is normal. No specific cause found for her abdominal/pelvic discomfort. Patient is comfortable with watchful waiting, urine culture is pending, urine did show leukocyte esterase but no nitrates. Discharge Plan Departure Patient Disposition: Home Clinical Impression: Flank pain Discharge Date/Time: 04/06/19 11:15 Interventions: ED Discharge Assessment Last Done: 04/06/19 11:15 Instructions: DI for Flank Pain Activity Restrictions/Additional Instructions: Follow-up with primary care in the next 5-7 days if symptoms are not resolving. You may take ibuprofen up to 800 mg every 8 hours as needed for pain and or Tylenol up to a 1000 mg every 8 hours as needed. Your urine was sent for urine culture, if it is positive you should expect a phone call in 48 hours. If negative we will not call. He should expect a mild increase in vaginal bleeding after your ultrasound today. Return to the emergency department for fevers greater 100.4 F, worsening abdominal or flank pain, lightheadedness, passing out, new or persistent vomiting, diarrhea, constipation, increasing vaginal bleeding or other new or concerning symptoms. Prescriptions: No Action prenat.vits,ashia,yhk-vqrh-xoogw tablet 1 tab PO DAILY Qty: 30 RF: 0
[2019-04-06 09:11] LABS: Bacteria Urine None Seen
[2019-04-06 09:21] LABS: Culture Indicated Urine Specimen Cultured; Mucus Urine 2+ (Negative); RBC Urine 10-30/HPF (0-5/HPF); WBC Urine 5-10/HPF (0-5/HPF)
[2019-04-06 09:55] LABS: Add Manual Diff / Slide Review NO; Basophils Absolute Auto 100 /uL (0-100); Basophils Percent Auto 0.7 % (0-2); Eosinophils Absolute Auto 100 /uL (0-450); Eosinophils Percent Auto 1.2 % (2-4); Hematocrit 41.6 % (36-46); Hemoglobin 14.2 g/dL (12.0-16.0); Lymphocytes Absolute Auto 2700 /uL (1100-4500); Lymphocytes Percent Auto 36.3 % (25-40); Mean Corpuscular Hemoglobin 29.8 PG (26-34); Mean Corpuscular Volume 87.6 fL (80-100); Monocytes Absolute Auto 700 /uL (0-900); Neutrophils Absolute Auto 3800 /uL (1500-7000); Neutrophils Percent Auto 51.8 % (50-75); Platelet Count 252 X10^3/uL (150-400); Red Blood Cell Count 4.75 X10^6/uL (4.0-5.2); Red Cell Distribution Width 13.1 % (11.6-14.8); White Blood Cell Count 7.3 X10^3/uL (4.5-11.0)
[2019-04-06 10:14] LABS: Alanine Aminotransferase 23 IU/L (9-52); Albumin 4.8 g/dL (3.5-5.0); Albumin Globulin Ratio 1.3 (1.0-2.8); Alkaline Phosphatase 72 U/L (38-126); Aspartate Aminotransferase 23 IU/L (14-36); BUN Creatinine Ratio 16.7 (6-22); Bilirubin Total 0.5 mg/dL (0.2-1.3); Blood Urea Nitrogen 10 mg/dL (7-17); Calcium 9.7 mg/dL (8.4-10.2); Carbon Dioxide 28 mmol/L (22-32); Chloride 104 mmol/L (98-107); Estimated Glomerular Filt Rate > 60.0 mL/min (>60); Globulin 3.7 g/dL (1.7-4.1); Glucose 98 mg/dL (70-100); HEMOLYSIS < 15 (0-50); Lipase 73 U/L (23-300); Potassium 4.3 mmol/L (3.4-5.1); Sodium 141 mmol/L (137-145); Total Protein 8.5 g/dL (6.3-8.2)
[2019-04-06 11:14] VITALS: BP 101/51; PULSE 50; RESP 18; O2SAT 98
== END 2019-04-06 11:15 | disposition home or self-care (01) ==
PROVIDERS: Emergency Provider Emergency Medicine
DX: R10.9 Unspecified abdominal pain (principal)
CPT/HCPCS: 76705; 76830; 76856; 80053; 81003; 81015; 81025; 83690; 85025; 87086; 99283; 99284